=== PATIENT | female | born 1965 | race Caucasian/White ===

== ENCOUNTER 2019-07-26 10:10 | Outpatient (CLI) | payer BC, SELFPAY ==
[2019-07-26 13:40] LABS: Alanine Aminotransferase 37 U/L (4-35); Albumin Level 4.6 g/dL (3.5-5.1); Alkaline Phosphatase 85 U/L (38-126); Aspartate Amino Transferase 56 U/L (14-36); Bilirubin,Total 0.5 mg/dL (0.2-1.3); Blood Urea Nitrogen 9 mg/dL (7-17); Calcium 9.9 mg/dL (8.4-10.2); Carbon Dioxide 27 mmol/L (22-30); Chloride 101 mmol/L (98-107); Cholesterol 193 mg/dL (0-200); Estimated Glomerular Filt Rate > 60; Glucose 75 mg/dL (65-105); HDL Direct 96 mg/dL; Potassium 4.4 mmol/L (3.4-5.0); Sodium 139 mmol/L (137-145); Triglycerides 189 mg/dL (<150)
[2019-07-26 13:50] LABS: LDL Cholesterol Direct 89 mg/dL
== END 2019-07-26 10:11 | disposition home or self-care (01) ==
LOC: ANHWCLAB 10:13
PROVIDERS: PCP Internal Medicine; Visit Provider Internal Medicine
DX: E78.5 Hyperlipidemia, unspecified (principal); I10 Essential (primary) hypertension; Z79.899 Other long term (current) drug therapy
CPT/HCPCS: 36415; 80053; 80061

== ENCOUNTER → 2020-05-24 08:49 | Outpatient (CLI) | payer BC, SELFPAY ==
--- NOTE | ~2020-05-24 | XR_ITS ---
EXAMINATION: XR lumbar spine 2-3V DATE: 05/24/2020 09:06 INDICATION: Low back pain TECHNIQUE: Anteroposterior and lateral views of the lumbar spine, and cone-down lateral view of the l umbosacral junction were obtained. COMPARISON: None. FINDINGS: There is no fracture, dislocation, or subluxation. The vertebral body heights are normal. T here is mild loss of intervertebral disc space height in the lower lumbar spine. Moderate facet osteo arthritis is present at L4-5 and L5-S1. Small degenerative osteophytes project from the anterior endp lates of multiple vertebral bodies. Calcified atherosclerosis is noted. IMPRESSION: 1. Mild lumbar spondylosis without acute findings. Reviewed, dictated and finalized at location A. [employer] SPECIALIST
== END ==
PROVIDERS: PCP Internal Medicine; Visit Provider Nurse Practitioner
DX: M54.41 Lumbago with sciatica, right side (principal); M47.896 Other spondylosis, lumbar region
CPT/HCPCS: 72100

== ENCOUNTER 2021-05-24 10:15 | Outpatient (CLI) | payer BC, SELFPAY ==
[2021-05-24 10:53] LABS: Add Urine Microscopic? YES; Appearance Urine Cloudy (Clear); Bacteria Urine 2+ /hpf; Bilirubin Urine Negative (Negative); Blood Urine Negative (Negative); Color Urine Yellow (Yellow); Glucose Urine UA Negative (Negative); Ketones Urine Negative (Negative); Leukocyte Esterase Ur 3+ LEU/UL (Negative); Mucus Urine Rare /lpf; Nitrate Urine Negative (Negative); Protein Urine Negative (Negative); Specific Grav Ur 1.006 (1.001-1.035); Squamous Epithelial Cell Urine Moderate /hpf (Few); Urobilinogen Urine Negative mg/dL (<2.0); WBC Clumps Urine Present /HPF; WBC Urine >75 /hpf
[2021-05-24 11:09] LABS: LDL Cholesterol Direct 64 mg/dL
[2021-05-24 11:11] LABS: Alanine Aminotransferase 115 U/L (4-35); Albumin Level 4.7 g/dL (3.5-5.1); Alkaline Phosphatase 102 U/L (38-126); Anion Gap 9 mmol/L (8-16); Aspartate Amino Transferase 218 U/L (14-36); Bilirubin,Total 0.7 mg/dL (0.2-1.3); Blood Urea Nitrogen 9 mg/dL (7-17); Calcium 9.8 mg/dL (8.4-10.2); Carbon Dioxide 29 mmol/L (22-30); Chloride 92 mmol/L (98-107); Cholesterol 214 mg/dL (0-200); Estimated Glomerular Filt Rate > 60; Glucose 93 mg/dL (65-110); Potassium 3.9 mmol/L (3.4-5.0); Sodium 130 mmol/L (137-145); Triglycerides 103 mg/dL (<150)
[2021-05-24 11:25] LABS: HDL Direct 154 mg/dL
== END 2021-05-24 10:16 | disposition home or self-care (01) ==
LOC: ANHLAB 10:18
PROVIDERS: PCP Internal Medicine; Visit Provider Nurse Practitioner
DX: E78.5 Hyperlipidemia, unspecified (principal); R39.9 Unspecified symptoms and signs involving the genitourinary system; Z51.81 Encounter for therapeutic drug level monitoring; Z79.899 Other long term (current) drug therapy
CPT/HCPCS: 36415; 80053; 80061; 81001; 84443; 87077; 87086; 87088; 87186

== ENCOUNTER 2021-06-21 07:51 | Outpatient (CLI) | payer BC, SELFPAY ==
--- NOTE | ~2021-06-21 | CT_ITS ---
EXAMINATION: CTA chest DATE: 06/21/2021 08:32 INDICATION: Thoracic aortic aneurysm without rupture TECHNIQUE: Computed tomographic angiography (CTA) of the chest was performed without and with 100 mL Omnipque-350 intravenous contrast. Maximum intensity projection 3D-reconstructions of the aorta and o ther arteries were constructed by the technologist on a separate workstation. The dose-length product (DLP) was 376.77 mGy-cm. Automated exposure control and iterative reconstruction technique were empl oyed. COMPARISON: 06/06/2017 FINDINGS: There is a stable 4.0 x 3.8 cm fusiform aneurysm of the ascending thoracic aorta measured a t the level of the main pulmonary artery. There is no dissection. The lungs are free of acute opaciti es. There is no pleural effusion or pneumothorax. No pathologically enlarged thoracic lymph nodes are identified. The heart size is normal. There is mild dependent atelectasis. There is a chronic perica rdial cyst on the right measuring 5 cm. A partially imaged cyst of the left kidney measures up to 7.6 cm. There is mild thoracic spondylosis. IMPRESSION: 1. Stable fusiform aneurysm of the ascending aorta measuring up to 4.0 cm. Reviewed, dictated and finalized at location F. E ANALYST
--- NOTE | ~2021-06-21 | US_ITS ---
EXAMINATION: US abdomen limited EXAM DATE: 06/21/2021 09:01 INDICATION: R79.89 - Other specified abnormal findings of blood chemistry . TECHNIQUE: Multiple grayscale and Doppler images of the abdomen right upper quadrant were obtained (b y a technologist who performed the scan) and subsequently reviewed. There is no prior study for fitz ro. FINDINGS: The pancreatic head and body are normal in appearance. The pancreatic tail is not visualized. There is echogenic liver parenchyma, hepatic steatosis. There are no focal liver lesions identified. Th ere is no evidence of intrahepatic biliary duct dilation. Portal venous flow was seen in the hepatop edal, normal direction and has normal Doppler waveform. No right-sided hydronephrosis. Common bile duct measures 5 mm, which is normal. The gallbladder wall is normal in thickness, with ex pected amount of distention. No sonographic evidence of pericholecystic fluid. There is no cholelit hiases. Technologist performing exam reports patient did not demonstrate sonographic Arrieta's sign. Please note that this sign is less reliable in patients who have received pain medication. IMPRESSION: 1. Hepatic steatosis. Reviewed, dictated and finalized at location B. R OPERATOR IMPRESSION: 1. Hepatic steatosis.
== END 2021-06-21 07:52 | disposition home or self-care (01) ==
LOC: ANHIMG 07:55
PROVIDERS: PCP Internal Medicine; Visit Provider Nurse Practitioner
DX: I71.2 Thoracic aortic aneurysm, without rupture (principal)
CPT/HCPCS: 71275; 76705; Q9967

== ENCOUNTER 2024-02-25 09:52 | Outpatient (CLI) | payer BC, SELFPAY ==
--- NOTE | ~2024-02-25 | XR_ITS ---
3 VIEWS LUMBAR SPINE Ordering provider: Caron Castañeda PA-C History: . M54.9 - Dorsalgia, unspecified . Comparison: None. FINDINGS: VERTEBRAL BODIES: No visible fracture or subluxation. degenerative changes of the spine. DISK SPACES: Narrowing of the disc L1-L2, L4-L5 and L5-S1. Facet joint disease at the level of L4-L5 and L5-S1. SOFT TISSUES: Vascular calcifications. IMPRESSION: No acute osseous abnormality lumbar spine. Reviewed, dictated and finalized at location A.
== END 2024-02-25 09:53 | disposition home or self-care (01) ==
LOC: MICIMG 09:52
PROVIDERS: PCP Family Medicine; Visit Provider Student in an Organized Health Care Education/Training Program
DX: M54.9 Dorsalgia, unspecified (principal)
CPT/HCPCS: 72100

== ENCOUNTER 2024-03-09 10:49 | Outpatient (CLI) | payer BC, SELFPAY ==
--- NOTE | ~2024-03-09 | CT_ITS ---
CTA chest Ordering provider: Caron Castañeda History: 58 years Female with . Thoracic aortic aneurysm, without rupture . Comparison: None. Technique: CT angiogram chest was performed following timed intravenous injection of contrast. Thin s lice axial images and reformatted coronal images were obtained. Three dimensional reformatted images of the chest were also obtained using a [employer] workstation. . Automated exposure control and iterati ve reconstruction technique were employed. The dose-length product was 662.71 mGy-cm. 100 mL Omnipaqu e 350 was given IV. Findings: PULMONARY ARTERIES: No pulmonary embolus. VISUALIZED THORACIC INLET: Normal. Small hypodensity in the right lobe of the thyroid most likely. Ul trasound evaluation advised. MEDIASTINUM: Aorta/coronary arteries: Indication ascending aorta measuring 4 x 4.1 cm which is unchanged from previous examination... Heart/other: The heart is not enlarged. Right paracardiac cyst is noted. Measures 4.8 x 4.2 cm. Lymph nodes: No mediastinal or hilar adenopathy. LUNGS: No pulmonary nodules or masses. No infiltrates or effusions. No pneumothorax. VISUALIZED UPPER ABDOMEN: Fat infiltration of the liver. Large left renal cyst measuring 7.6 x 7.5 cm . Otherwise, the visualized upper abdomen is normal. MUSCULOSKELETAL: Soft tissues: The superficial soft tissues are normal. Bones: Age appropriate degenerative changes of the spine. IMPRESSION: 1. Stable aneurysm of the ascending aorta. 2. Right paracardiac cyst unchanged. 3. Fat infiltration of the liver. 4. Large left renal cyst. Reviewed, dictated and finalized at location A.
== END 2024-03-09 10:50 | disposition home or self-care (01) ==
LOC: MICIMG 10:50
PROVIDERS: PCP Family Medicine; Visit Provider Student in an Organized Health Care Education/Training Program
DX: I71.21 Aneurysm of the ascending aorta, without rupture (principal); I31.8 Other specified diseases of pericardium; K76.0 Fatty (change of) liver, not elsewhere classified; N28.1 Cyst of kidney, acquired
CPT/HCPCS: 71275; Q9967